=== PATIENT | female | born 2000 | race African-American/Black ===

== ENCOUNTER 2020-10-09 17:51 | Emergency (ER) | payer SELFPAY ==
[~2020-10-09] VITALS: Ht 152.4 cm; Wt 61.0 kg
[2020-10-09] MEDS ORDERED: VISCOUS LIDOCAINE 2% 15 ML UDC PO STA (18:17)
[2020-10-09] MEDS ORDERED: MAGNESIUM/ALUMINUM HYDROXIDE/SIMETHICONE 30ML UDC PO STA (18:17)
[2020-10-09 18:39] LABS: CLARITY URINE CLEAR (CLEAR); COLOR URINE YELLOW (YELLOW); KETONES URINE NEGATIVE (NEGATIVE); LEUKOCYTE ESTERASE URINE NEGATIVE (NEGATIVE); NITRITE URINE NEGATIVE (NEGATIVE); OCCULT BLOOD URINE NEGATIVE (NEGATIVE); PROTEIN URINE NEGATIVE (NEGATIVE); UROBILINOGEN URINE 0.2 E.U./dL (0.2-1.0)
[2020-10-09 19:17] LABS: BASOPHILS % 0.4 % (0.0-2.0); EOSINOPHILS % 0.7 % (0.0-5.0); HEMATOCRIT. 38.6 % (36.0-48.0); HEMOGLOBIN. 13.5 g/dL (12.0-16.0); LYMPHOCYTES % 37.8 % (20.0-50.0); MEAN CORPUSCULAR HEMOGLOBIN 32.8 pg (28.0-32.0); MEAN CORPUSCULAR VOLUME 93.7 fL (81.0-99.0); MEAN PLATELET VOLUME 7.2 fl (7.4-10.4); MONOCYTES % 7.8 % (2.0-8.0); NEUTROPHILS % 53.3 % (40.0-76.0); PLATELET 365 x1000/uL (130-400); RED BLOOD CELL COUNT 4.12 mill/uL (4.2-5.4); RED CELL DISTRIBUTION WIDTH 12.5 % (11.6-14.6)
[2020-10-09 19:24] LABS: CHLORIDE 106 mEq/L (98-107)
[2020-10-09 19:28] LABS: ETHANOL BLOOD < 10 mg/dL
[2020-10-09 19:34] LABS: INR 1.1; PROTHROMBIN TIME 11.5 sec (9.6-11.0)
[2020-10-09 19:35] LABS: HCG SCREEN NEGATIVE
[2020-10-09 21:39] VITALS: BP 130/70
== END 2020-10-09 21:44 | disposition home or self-care (01) ==
LOC: ER 17:51
DX: K80.50 Calculus of bile duct without cholangitis or cholecystitis without obstruction (principal)
CPT/HCPCS: 36415; 71045; 76700; 80053; 80320; 81003; 81025; 83605; 84484; 84703; 85025; 99285; G0480

== ENCOUNTER 2022-01-13 20:09 | Emergency (ER) | payer MEDICAID ==
[~2022-01-13] VITALS: Ht 157.5 cm; Wt 49.2 kg
[2022-01-13 20:11] VITALS: BP 123/93
== END 2022-01-13 20:57 | disposition left against medical advice (07) ==
LOC: ER 20:09
DX: Z53.21 Procedure and treatment not carried out due to patient leaving prior to being seen by health care provider (principal)
CPT/HCPCS: 81025

== ENCOUNTER 2022-07-10 20:04 | Emergency (ER) | payer BC, MEDICAID ==
[~2022-07-10] VITALS: Ht 157.5 cm; Wt 50.2 kg
[2022-07-10 20:16] VITALS: BP 130/82
== END 2022-07-11 | disposition left against medical advice (07) ==
LOC: ER 20:04
DX: Z53.21 Procedure and treatment not carried out due to patient leaving prior to being seen by health care provider (principal)